=== PATIENT | male | born 1940 | race Caucasian/White ===

== ENCOUNTER 2023-12-11 18:54 | Inpatient (IN) | payer OTHER ==
[~2023-12-11] VITALS: Ht 180.3 cm; Wt 83.5 kg
[2023-12-11 19:18] VITALS: BP_SYST 104; PULSE 105; RESP 20; TEMP 97.2; O2SAT 97
[2023-12-11 21:18] LABS: EOSINOPHILS # (AUTO) 1.2 K/uL (0.0-0.4)
[2023-12-11 21:22] LABS: BASOPHILS # (AUTO) 0.2 K/uL (0.0-0.2); BASOPHILS % (AUTO) 1.2 % (0.0-2.0); RED BLOOD CELL COUNT(AUTO) 4.25 MIL/uL (4.2-6.2)
[2023-12-11 21:27] LABS: EOSINOPHILS % (AUTO) 8.9 % (0.0-4.0); HEMATOCRIT 37.8 % (36-54); HEMOGLOBIN 12.6 g/dL (14.0-18.0); LYMPHOCYTES # (AUTO) 1.7 K/uL (1.0-5.5); LYMPHOCYTES % (AUTO) 12.6 % (20.5-51.5); MEAN CORPUSCULAR HEMOGLOBIN 30 pg (27-31); MEAN CORPUSCULAR HGB CONC 33 % (32-36); MEAN CORPUSCULAR VOLUME 89 fL (79.0-98.0); MONOCYTES % (AUTO) 7.3 % (1.7-9.3); NEUTROPHILS # (AUTO) 9.4 K/uL (1.8-7.7); PLATELET COUNT (AUTO) 515 K/uL (130-430); RED CELL DISTRIBUTION WIDTH 15.5 % (9.0-15.0); WHITE BLOOD COUNT (AUTO) 13.5 K/uL (4.8-10.8)
[2023-12-11 21:32] LABS: ANION GAP 11 (5-15); CALCIUM 9.4 mg/dL (8.4-11.0); CARBON DIOXIDE 24 mmol/L (23-29); CHLORIDE 100 mmol/L (98-107); CREATININE 0.61 mg/dL (0.55-1.30); GLUCOSE 198 mg/dL (74-106); POTASSIUM 4.3 mmol/L (3.5-5.1); SODIUM SERUM 135 mmol/L (136-145); UREA NITROGEN, BLOOD 26 mg/dL (8-21)
[2023-12-11] MEDS ORDERED: NACL 0.9% 1,000 ML IV ONE (22:15)
[2023-12-11] MEDS ORDERED: FAMO-295 PO (23:50)
[2023-12-11] MEDS ORDERED: ASCO500T20 PO (23:50)
[2023-12-11] MEDS ORDERED: FAMO-268 PO (23:50)
[2023-12-11] MEDS ORDERED: FENO134C19 PO (23:50)
[2023-12-11] MEDS ORDERED: SIMV-343 PO (23:50)
[2023-12-11] MEDS ORDERED: MULT-1193 PO (23:50)
[2023-12-11] MEDS ORDERED: ZINC50TA15 PO (23:50)
[2023-12-11] MEDS ORDERED: TRAM50TA PO (23:50)
[2023-12-11] MEDS ORDERED: ASCO500C18 PO (23:50)
[2023-12-11] MEDS ORDERED: ACET325T53 PO (23:50)
[2023-12-11] MEDS ORDERED: FINA-37 PO (23:50)
[2023-12-11] MEDS ORDERED: LOSA-415 PO (23:50)
[2023-12-11] MEDS ORDERED: DONE10TA4 PO (23:50)
[2023-12-11] MEDS ORDERED: CLOP75TA2 PO (23:50)
[2023-12-11] MEDS ORDERED: DULR10 RC (23:50)
[2023-12-11] MEDS ORDERED: CHOL100062 PO (23:50)
[2023-12-11] MEDS ORDERED: METF1000 PO (23:50)
[2023-12-12 00:45] LABS: INFLUENZA TYPE A Negative (NEGATIVE); INFLUENZA TYPE B NEGATIVE (NEGATIVE)
[2023-12-12 01:59] LABS: BILIRUBIN,URINE NEGATIVE (NEGATIVE); BLOOD, URINE 1+ (NEGATIVE); CLARITY/URINE SL CLOUDY (CLEAR); COLOR,URINE YELLOW (YELLOW); GLUCOSE,URINE NEGATIVE (NEGATIVE); KETONES,URINE NEGATIVE (NEGATIVE); LEUKOCYTE ESTERASE ,URINE 2+ (NEGATIVE); NITRITE, URINE NEGATIVE (NEGATIVE); PROTEIN URINE NEGATIVE (NEGATIVE)
[2023-12-12 02:25] LABS: BACTERIA,URINE MANY /HPF (None Seen); WBC,URINE 80-100 /HPF (0-3)
[2023-12-12] MEDS ORDERED: cefTRIAXone 1 GM IVPB PREMIX 50 ML IV ONE (02:45)
[2023-12-12] MEDS ORDERED: MUPIROCIN 2% TOPICAL OINTMENT 22 GM NS PRN (09:15)
[2023-12-12] MEDS ORDERED: DEXTROSE 50% JECT 50 ML DISP.SYRIN IVP PRN (09:15)
[2023-12-12] MEDS ORDERED: LORazepam 2 MG/ML VIAL IVP PRN (09:15)
[2023-12-12] MEDS ORDERED: MORPHINE 2 MG/ML INJ. SYRINGE IVP PRN ×2 (09:15)
[2023-12-12] MEDS ORDERED: POTASSIUM CHLORIDE 20 MEQ TABLET.ER PO PRN (09:15)
[2023-12-12] MEDS ORDERED: ZOLPIDEM TARTRATE 5 MG TABLET PO PRN (09:15)
[2023-12-12] MEDS ORDERED: ONDANSETRON HCL 4 MG/2 ML VIAL IVP PRN (09:15)
[2023-12-12] MEDS ORDERED: DOCUSATE SODIUM 100 MG CAPSULE PO PRN (09:15)
[2023-12-12] MEDS ORDERED: ACETAMINOPHEN 325 MG TABLET PO PRN (09:15)
[2023-12-12] MEDS ORDERED: MAGNESIUM SULFATE 50 ML IV PRN (09:15)
[2023-12-12] MEDS ORDERED: NALOXONE HCL 0.4 MG/ML AMP (NARCAN) IVP PRN ×2 (09:15)
[2023-12-12] MEDS: NACL 0.9% 1,000 ML IV SCH (12:00)
[2023-12-12] MEDS: metFORMIN HCL 500 MG TABLET PO SCH (18:43)
[2023-12-12 20:00] VITALS: BP_SYST 108; PULSE 99; RESP 18; TEMP 98.7; O2SAT 98
[2023-12-12] MEDS: DONEPEZIL HCL 5 MG TABLET (ARICEPT) PO SCH (20:27)
[2023-12-12] MEDS: SIMVASTATIN 20 MG TABLET PO SCH (20:27)
[2023-12-12] MEDS: INSULIN LISPRO SLIDING SCALE 100 UNITS/ML, 3 ML VIAL (humaLOG) SUBCUT PRN (20:32)
[2023-12-12] MEDS ORDERED: NON-FORMULARY MEDICATION (Donepezil Hcl (Aricept) 1 TAB) PO SCH (21:00)
[2023-12-13] VITALS (7 sets, daily range): BP systolic 98–123; PULSE 66–98; RESP 15–22; TEMP 97.5–98.4; O2SAT 95–98
[2023-12-13] MEDS: NACL 0.9% 1,000 ML IV SCH ×2 (03:40→17:27)
[2023-12-13 06:03] LABS: BASOPHILS % (AUTO) 0.2 % (0.0-2.0); EOSINOPHILS # (AUTO) 1.1 K/uL (0.0-0.4); EOSINOPHILS % (AUTO) 11.2 % (0.0-4.0); HEMATOCRIT 35.1 % (36-54); HEMOGLOBIN 11.7 g/dL (14.0-18.0); LYMPHOCYTES # (AUTO) 1.7 K/uL (1.0-5.5); LYMPHOCYTES % (AUTO) 17.7 % (20.5-51.5); MEAN CORPUSCULAR HEMOGLOBIN 30 pg (27-31); MEAN CORPUSCULAR HGB CONC 33 % (32-36); MEAN CORPUSCULAR VOLUME 89 fL (79.0-98.0); MONOCYTES # (AUTO) 0.9 K/uL (0.0-1.0); MONOCYTES % (AUTO) 9.8 % (1.7-9.3); NEUTROPHILS # (AUTO) 5.7 K/uL (1.8-7.7); NEUTROPHILS % (AUTO) 61.1 % (40.0-70.0); PLATELET COUNT (AUTO) 459 K/uL (130-430); RED BLOOD CELL COUNT(AUTO) 3.96 MIL/uL (4.2-6.2); RED CELL DISTRIBUTION WIDTH 14.9 % (9.0-15.0)
[2023-12-13 06:49] LABS: ANION GAP 10 (5-15); CALCIUM 8.8 mg/dL (8.4-11.0); CARBON DIOXIDE 24 mmol/L (23-29); CHLORIDE 105 mmol/L (98-107); CREATININE 0.39 mg/dL (0.55-1.30); GLUCOSE 124 mg/dL (74-106); POTASSIUM 3.8 mmol/L (3.5-5.1); SODIUM SERUM 139 mmol/L (136-145); UREA NITROGEN, BLOOD 14 mg/dL (8-21)
[2023-12-13 08:01] LABS: WHITE BLOOD COUNT (AUTO) 9.4 K/uL (4.8-10.8)
[2023-12-13] MEDS ORDERED: LOSARTAN POTASSIUM PO SCH (09:00)
[2023-12-13] MEDS: metFORMIN HCL 500 MG TABLET PO SCH ×2 (09:04→17:26)
[2023-12-13] MEDS: CLOPIDOGREL BISULFATE 75 MG TABLET PO SCH (09:04)
[2023-12-13] MEDS: cefTRIAXone 1 GM in D5W 50 ML IV SCH (09:19)
[2023-12-13] MEDS: FINASTERIDE 5 MG TABLET (PROSCAR) PO SCH (09:20)
[2023-12-13] MEDS: DONEPEZIL HCL 5 MG TABLET (ARICEPT) PO SCH (22:01)
[2023-12-13] MEDS: SIMVASTATIN 20 MG TABLET PO SCH (22:02)
[2023-12-13] MEDS: INSULIN LISPRO SLIDING SCALE 100 UNITS/ML, 3 ML VIAL (humaLOG) SUBCUT PRN (22:05)
[2023-12-14] VITALS (7 sets, daily range): BP systolic 100–154; PULSE 70–95; RESP 16–20; TEMP 97–98.6; O2SAT 95–98
[2023-12-14 06:21] LABS: BASOPHILS # (AUTO) 0.1 K/uL (0.0-0.2); BASOPHILS % (AUTO) 1.4 % (0.0-2.0); EOSINOPHILS # (AUTO) 1.1 K/uL (0.0-0.4); EOSINOPHILS % (AUTO) 12.1 % (0.0-4.0); HEMATOCRIT 34.4 % (36-54); HEMOGLOBIN 11.5 g/dL (14.0-18.0); LYMPHOCYTES # (AUTO) 1.5 K/uL (1.0-5.5); LYMPHOCYTES % (AUTO) 16.8 % (20.5-51.5); MEAN CORPUSCULAR HEMOGLOBIN 30 pg (27-31); MEAN CORPUSCULAR HGB CONC 34 % (32-36); MEAN CORPUSCULAR VOLUME 89 fL (79.0-98.0); MONOCYTES # (AUTO) 0.9 K/uL (0.0-1.0); MONOCYTES % (AUTO) 9.7 % (1.7-9.3); NEUTROPHILS # (AUTO) 5.3 K/uL (1.8-7.7); PLATELET COUNT (AUTO) 427 K/uL (130-430); RED BLOOD CELL COUNT(AUTO) 3.86 MIL/uL (4.2-6.2); RED CELL DISTRIBUTION WIDTH 15.3 % (9.0-15.0); WHITE BLOOD COUNT (AUTO) 8.9 K/uL (4.8-10.8)
[2023-12-14] MEDS: NACL 0.9% 1,000 ML IV SCH ×2 (06:53→21:12)
[2023-12-14 06:56] LABS: ANION GAP 12 (5-15); CALCIUM 8.2 mg/dL (8.4-11.0); CARBON DIOXIDE 22 mmol/L (23-29); CHLORIDE 106 mmol/L (98-107); CREATININE 0.57 mg/dL (0.55-1.30); GLUCOSE 180 mg/dL (74-106); POTASSIUM 4.2 mmol/L (3.5-5.1); SODIUM SERUM 140 mmol/L (136-145); UREA NITROGEN, BLOOD 13 mg/dL (8-21)
[2023-12-14] MEDS: INSULIN LISPRO SLIDING SCALE 100 UNITS/ML, 3 ML VIAL (humaLOG) SUBCUT PRN (07:00)
[2023-12-14] MEDS: FINASTERIDE 5 MG TABLET (PROSCAR) PO SCH (09:28)
[2023-12-14] MEDS: cefTRIAXone 1 GM in D5W 50 ML IV SCH (09:28)
[2023-12-14] MEDS: metFORMIN HCL 500 MG TABLET PO SCH ×2 (09:28→17:17)
[2023-12-14] MEDS: CLOPIDOGREL BISULFATE 75 MG TABLET PO SCH (09:28)
[2023-12-14] MEDS: SIMVASTATIN 20 MG TABLET PO SCH (22:09)
[2023-12-14] MEDS: DONEPEZIL HCL 5 MG TABLET (ARICEPT) PO SCH (22:09)
[2023-12-15 01:17] VITALS: BP_SYST 106; PULSE 83; RESP 19; TEMP 97.7; O2SAT 97
[2023-12-15] MEDS: NACL 0.9% 1,000 ML IV SCH (02:32)
[2023-12-15 07:31] LABS: ANION GAP 9 (5-15); CALCIUM 8.3 mg/dL (8.4-11.0); CARBON DIOXIDE 24 mmol/L (23-29); CHLORIDE 105 mmol/L (98-107); CREATININE 0.47 mg/dL (0.55-1.30); GLUCOSE 119 mg/dL (74-106); SODIUM SERUM 138 mmol/L (136-145); UREA NITROGEN, BLOOD 13 mg/dL (8-21)
[2023-12-15 07:36] LABS: BASOPHILS # (AUTO) 0.1 K/uL (0.0-0.2); BASOPHILS % (AUTO) 1.2 % (0.0-2.0); EOSINOPHILS # (AUTO) 1.4 K/uL (0.0-0.4); EOSINOPHILS % (AUTO) 13.6 % (0.0-4.0); HEMATOCRIT 32.5 % (36-54); LYMPHOCYTES # (AUTO) 1.4 K/uL (1.0-5.5); LYMPHOCYTES % (AUTO) 13.5 % (20.5-51.5); MEAN CORPUSCULAR HEMOGLOBIN 30 pg (27-31); MEAN CORPUSCULAR HGB CONC 34 % (32-36); MEAN CORPUSCULAR VOLUME 89 fL (79.0-98.0); MONOCYTES # (AUTO) 0.9 K/uL (0.0-1.0); MONOCYTES % (AUTO) 8.9 % (1.7-9.3); NEUTROPHILS # (AUTO) 6.3 K/uL (1.8-7.7); NEUTROPHILS % (AUTO) 62.8 % (40.0-70.0); PLATELET COUNT (AUTO) 414 K/uL (130-430); RED BLOOD CELL COUNT(AUTO) 3.67 MIL/uL (4.2-6.2); RED CELL DISTRIBUTION WIDTH 14.9 % (9.0-15.0); WHITE BLOOD COUNT (AUTO) 10.1 K/uL (4.8-10.8)
[2023-12-15 08:00] VITALS: BP_SYST 144; PULSE 90; RESP 18; TEMP 98.2; O2SAT 94
[2023-12-15] MEDS: cefTRIAXone 1 GM in D5W 50 ML IV SCH (09:12)
[2023-12-15] MEDS: CLOPIDOGREL BISULFATE 75 MG TABLET PO SCH (09:13)
[2023-12-15] MEDS: FINASTERIDE 5 MG TABLET (PROSCAR) PO SCH (09:13)
[2023-12-15] MEDS: metFORMIN HCL 500 MG TABLET PO SCH (09:13)
[2023-12-15 10:47] VITALS: BP_SYST 138; PULSE 70; RESP 19; TEMP 98.9; O2SAT 97
[2023-12-15 14:04] VITALS: BP_SYST 137; PULSE 93; RESP 20; TEMP 98.4; O2SAT 94
== END 2023-12-15 15:26 | DRG 871 ==
LOC: SED 18:54 → SMU 12-12 08:51
PROVIDERS: ADMIT General Practice; ATTEND General Practice
DX: A41.9 Sepsis, unspecified organism (principal); G93.41 Metabolic encephalopathy; N39.0 Urinary tract infection, site not specified; E86.0 Dehydration; G30.9 Alzheimer's disease, unspecified; F02.80 Dementia in other diseases classified elsewhere, unspecified severity, without behavioral disturbance, psychotic disturbance, mood disturbance, and anxiety; I25.10 Atherosclerotic heart disease of native coronary artery without angina pectoris; I10 Essential (primary) hypertension; E78.5 Hyperlipidemia, unspecified; E11.9 Type 2 diabetes mellitus without complications; Z20.822 Contact with and (suspected) exposure to COVID-19; K21.9 Gastro-esophageal reflux disease without esophagitis; Z79.899 Other long term (current) drug therapy
CPT/HCPCS: 36415; 70450-TC; 71045; 76376; 80048; 81000; 81001; 81015; 82948; 82962; 83037; 83735; 83880; 84484; 85025; 87040; 87081; 87086; 93005; 96360; 97110-GP; 97530-GP; 99285; J0696; J7060